=== PATIENT | male | born 1995 | race Caucasian/White ===

== ENCOUNTER 2017-07-04 01:03 | Emergency (ER) | payer OTHER ==
[2017-07-04] MEDS ORDERED: ACETAMINOPHEN 500 MG TAB PO ONE (01:07)
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
[2017-07-04 01:47] VITALS: BP 146/79; PULSE 100; RESP 18; TEMP 97.9; O2SAT 97
== END 2017-07-04 01:47 | disposition home or self-care (01) ==
DX: S20.311A Abrasion of right front wall of thorax, initial encounter (principal); V48.5XXA Car driver injured in noncollision transport accident in traffic accident, initial encounter; Y92.410 Unspecified street and highway as the place of occurrence of the external cause; Y99.8 Other external cause status; Y93.89 Activity, other specified